=== PATIENT | female | born 1975 | race Caucasian/White ===

== ENCOUNTER → 2023-09-17 11:18 | Outpatient (CLI) | payer OTHER, SELFPAY ==
--- NOTE | ~2023-09-17 | MR_ITS ---
EXAMINATION: MR abdomen wo/w con INDICATION: Liver masses TECHNIQUE: Coronal SSFSE ARC, WATER:coronal LAVA-FLEX, Coronal 2D FIESTA FatSat, Axial SSFSE BH ARC, Axial 3D DualEcho BH, Axial SSFSE-IR, Axial DWI b=500, Axial 2D FIESTA FatSat, pre and dynamic postco ntrast Axial LAVA ARC, postcontrast Coronal In and Opposed phase LAVA FLEX COMPARISON: None available CONTRAST: Multihance, 14 cc FINDINGS: There is a 3 x 1.3 cm T1 hypointense, T2 hyperintense mass in liver segment VII. The mass d emonstrates interrupted peripheral nodular enhancement with gradual centripetal filling on progressiv abdias delayed postcontrast sequences. There is focal steatosis of the liver adjacent to the gallbladder fossa. The spleen, pancreas, and adrenal glands are normal. Changes of cholecystectomy are noted. Th e kidneys are unremarkable. There are no pathologically enlarged abdominal lymph nodes. There are no dilated loops of bowel. A gastric lap band is noted. IMPRESSION: 1. Right hepatic lobe mass consistent with a hemangioma. Reviewed, dictated and finalized at location [employer]
== END ==
PROVIDERS: PCP Family Medicine; Visit Provider Family Medicine
DX: K76.89 Other specified diseases of liver (principal)
CPT/HCPCS: 74183; A9577